=== PATIENT | female | born 1945 | race Caucasian/White ===

== ENCOUNTER → 2019-11-11 14:49 | Outpatient (BNVA) | payer MEDICARE, OTHER, SELFPAY | PROVIDERS: Family Provider Family Medicine; PCP Family Medicine; Visit Provider Internal Medicine Rheumatology | DX: M05.79 Rheumatoid arthritis with rheumatoid factor of multiple sites without organ or systems involvement (principal); Z79.899 Other long term (current) drug therapy; M81.0 Age-related osteoporosis without current pathological fracture; H57.89 Other specified disorders of eye and adnexa | CPT/HCPCS: 99214 ==

== ENCOUNTER → 2020-02-10 10:03 | Outpatient (BNVA) | payer MEDICARE, OTHER, SELFPAY | PROVIDERS: Family Provider Family Medicine; PCP Family Medicine; Visit Provider Internal Medicine Rheumatology | DX: Z79.899 Other long term (current) drug therapy (principal) | CPT/HCPCS: 36415; 80076; 82306; 82565; 85025; 85651; 86140 ==

== ENCOUNTER → 2020-02-17 08:58 | Outpatient (BNVA) | payer MEDICARE, OTHER, SELFPAY | PROVIDERS: Family Provider Family Medicine; PCP Family Medicine; Visit Provider Internal Medicine Rheumatology | DX: M05.79 Rheumatoid arthritis with rheumatoid factor of multiple sites without organ or systems involvement (principal); Z79.899 Other long term (current) drug therapy; M81.0 Age-related osteoporosis without current pathological fracture; N30.20 Other chronic cystitis without hematuria; N39.498 Other specified urinary incontinence | CPT/HCPCS: 99214 ==

== ENCOUNTER → 2020-02-25 13:46 | Outpatient (BNVA) | payer MEDICARE, OTHER, SELFPAY | PROVIDERS: Family Provider Family Medicine; PCP Family Medicine; Visit Provider Nurse Practitioner Family | DX: N30.20 Other chronic cystitis without hematuria (principal); N39.498 Other specified urinary incontinence | CPT/HCPCS: 81001 ==

== ENCOUNTER → 2020-05-04 08:46 | Outpatient (BNVA) | payer MEDICARE, OTHER, SELFPAY | PROVIDERS: Family Provider Family Medicine; PCP Family Medicine; Referring Provider Dermatology; Visit Provider Dermatology | DX: L81.4 Other melanin hyperpigmentation (principal); D36.10 Benign neoplasm of peripheral nerves and autonomic nervous system, unspecified; L82.1 Other seborrheic keratosis; D23.30 Other benign neoplasm of skin of unspecified part of face | CPT/HCPCS: 99203 ==

== ENCOUNTER → 2020-05-30 13:07 | Outpatient (BNVA) | payer MEDICARE, OTHER, SELFPAY | PROVIDERS: Family Provider Family Medicine; PCP Family Medicine; Visit Provider Nurse Practitioner Family | DX: N30.20 Other chronic cystitis without hematuria (principal) | CPT/HCPCS: 81001 ==

== ENCOUNTER → 2020-06-06 09:10 | Outpatient (BNVA) | payer MEDICARE, OTHER, SELFPAY | PROVIDERS: Family Provider Family Medicine; PCP Family Medicine; Visit Provider Internal Medicine Rheumatology | DX: M05.79 Rheumatoid arthritis with rheumatoid factor of multiple sites without organ or systems involvement (principal); Z79.899 Other long term (current) drug therapy | CPT/HCPCS: 36415; 80076; 82565; 85025; 85651; 86140 ==

== ENCOUNTER → 2020-06-22 08:52 | Outpatient (BNVA) | payer MEDICARE, OTHER, SELFPAY | PROVIDERS: Family Provider Family Medicine; PCP Family Medicine; Visit Provider Internal Medicine Rheumatology | DX: M05.79 Rheumatoid arthritis with rheumatoid factor of multiple sites without organ or systems involvement (principal); Z79.899 Other long term (current) drug therapy; M81.0 Age-related osteoporosis without current pathological fracture | CPT/HCPCS: 99214 ==

== ENCOUNTER 2020-07-01 14:55 | Outpatient (CLI) | payer MEDICARE, OTHER, SELFPAY ==
--- NOTE | 2020-07-01 15:15 | XR_ITS ---
WS: [id number] Bone mineral density performed on a [email or web address] IDXA, 07/01/2020 Clinical data: osteoporosis DEXA scan, 07/13/2013. Findings: The first 4 lumbar vertebral bodies demonstrated the bone mineral density of 0.886 g/cm2 for a young adult T score of -2.5. Measurement of the left hip reveals a bone mineral density of 0.782 g/cm2 with a young adult T score of -1.8. Measurement of the right hip reveals the bone mineral density of 0.773 g/cm2 for young adult T score of -1.9. XR/XR DEXA axial skeleton* [id number] Impression: 1. Osteoporosis of the lumbar spine with a slight improvement in the bone cloth examiner hand al density. 2. Osteopenia of the left hip with a slight decrease in the bone mineral densit y compared to the previous study. 3. Osteopenia of the right hip with a moderate loss of bone mineral density com pared to the previous study.
== END 2020-07-01 14:56 | disposition home or self-care (01) ==
LOC: RADWPI 15:03
PROVIDERS: Family Provider Family Medicine; PCP Family Medicine; Visit Provider Internal Medicine Rheumatology
DX: M81.0 Age-related osteoporosis without current pathological fracture (principal); M85.88 Other specified disorders of bone density and structure, other site
CPT/HCPCS: 77080

== ENCOUNTER → 2020-08-29 13:04 | Outpatient (BNVA) | payer MEDICARE, OTHER, SELFPAY | PROVIDERS: Family Provider Family Medicine; PCP Family Medicine; Visit Provider Nurse Practitioner Family | DX: N30.20 Other chronic cystitis without hematuria (principal) | CPT/HCPCS: 81003 ==

== ENCOUNTER → 2020-10-19 09:49 | Outpatient (BNVA) | payer MEDICARE, OTHER, SELFPAY | PROVIDERS: Family Provider Family Medicine; PCP Family Medicine; Visit Provider Internal Medicine Rheumatology | DX: M05.79 Rheumatoid arthritis with rheumatoid factor of multiple sites without organ or systems involvement (principal); Z79.899 Other long term (current) drug therapy; M81.0 Age-related osteoporosis without current pathological fracture | CPT/HCPCS: 99214 ==

== ENCOUNTER → 2020-11-28 13:16 | Outpatient (BNVA) | payer MEDICARE, OTHER, SELFPAY | PROVIDERS: Family Provider Family Medicine; PCP Family Medicine; Visit Provider Nurse Practitioner Family | DX: N30.20 Other chronic cystitis without hematuria (principal) | CPT/HCPCS: 81003 ==

== ENCOUNTER → 2021-02-14 09:49 | Outpatient (BNVA) | payer MEDICARE, OTHER, SELFPAY | PROVIDERS: Family Provider Family Medicine; PCP Family Medicine; Visit Provider Internal Medicine Rheumatology | DX: Z79.899 Other long term (current) drug therapy (principal); M05.79 Rheumatoid arthritis with rheumatoid factor of multiple sites without organ or systems involvement; M19.90 Unspecified osteoarthritis, unspecified site | CPT/HCPCS: 36415; 80076; 82565; 85025; 86140 ==

== ENCOUNTER → 2021-02-23 09:55 | Outpatient (BNVA) | payer MEDICARE, OTHER, SELFPAY | PROVIDERS: Family Provider Family Medicine; PCP Family Medicine; Visit Provider Internal Medicine Rheumatology | DX: M05.79 Rheumatoid arthritis with rheumatoid factor of multiple sites without organ or systems involvement (principal); Z79.899 Other long term (current) drug therapy; M81.0 Age-related osteoporosis without current pathological fracture; R25.2 Cramp and spasm; Z86.16 Personal history of COVID-19 | CPT/HCPCS: 99214 ==

== ENCOUNTER → 2021-04-04 13:42 | Outpatient (BNVA) | payer MEDICARE, OTHER, SELFPAY | PROVIDERS: Family Provider Family Medicine; PCP Family Medicine; Visit Provider Urology | DX: N30.20 Other chronic cystitis without hematuria (principal) | CPT/HCPCS: 81003; 87077; 87086; 87184 ==

== ENCOUNTER → 2021-05-16 13:11 | Outpatient (BNVA) | payer MEDICARE, OTHER, SELFPAY | PROVIDERS: Family Provider Family Medicine; PCP Family Medicine; Visit Provider Urology | DX: N30.20 Other chronic cystitis without hematuria (principal); N39.498 Other specified urinary incontinence; N39.41 Urge incontinence | CPT/HCPCS: 81003 ==

== ENCOUNTER → 2021-06-15 13:58 | Outpatient (BNVA) | payer MEDICARE, OTHER, SELFPAY | PROVIDERS: Family Provider Family Medicine; PCP Family Medicine; Visit Provider Internal Medicine Rheumatology | DX: M05.79 Rheumatoid arthritis with rheumatoid factor of multiple sites without organ or systems involvement (principal); R25.2 Cramp and spasm; Z79.899 Other long term (current) drug therapy | CPT/HCPCS: 36415; 80076; 82310; 82565; 85025; 86140 ==

== ENCOUNTER → 2021-07-13 08:34 | Outpatient (BNVA) | payer MEDICARE, OTHER, SELFPAY | PROVIDERS: Family Provider Family Medicine; PCP Family Medicine; Visit Provider Nurse Practitioner Family | DX: N30.20 Other chronic cystitis without hematuria (principal) | CPT/HCPCS: 81003 ==

== ENCOUNTER → 2021-09-06 14:24 | Outpatient (BNVA) | payer MEDICARE, OTHER, SELFPAY | PROVIDERS: Family Provider Family Medicine; PCP Family Medicine; Visit Provider Internal Medicine Rheumatology | DX: M05.79 Rheumatoid arthritis with rheumatoid factor of multiple sites without organ or systems involvement (principal); Z79.899 Other long term (current) drug therapy; M81.0 Age-related osteoporosis without current pathological fracture; Z86.16 Personal history of COVID-19; Z71.89 Other specified counseling | CPT/HCPCS: 80076; 82565; 85025; 86140; 99214 ==

== ENCOUNTER 2021-09-06 15:59 | Outpatient (CLI) | payer MEDICARE, OTHER, SELFPAY ==
[2021-09-06 16:24] LABS: Basophils % 0.5 %; Eosinophils # 0.2 10^3/uL (0.0-0.8); Eosinophils % 2.3 %; Hematocrit 38.4 % (37.0-47.0); Hemoglobin 12.5 g/dL (11.5-15.3); Lymphocytes # 1.4 10^3/uL (0.8-4.8); Lymphocytes % 20.7 %; Mean Corpuscular HGB Conc 32.6 g/dL (30.0-36.0); Mean Corpuscular Hemoglobin 33.7 pg (28.0-34.0); Mean Corpuscular Volume 103.5 fl (81-99); Mean Platelet Volume 9.3 fL (7.4-10.4); Monocytes # 0.6 10^3/uL (0.2-0.9); Monocytes % 8.3 %; Neutrophils # 4.45 10^3/uL (1.8-7.7); Neutrophils % 67.3 %; Nucleated Red Blood Cells % 0 %; Platelet Count 189 10^3/cmm (130-400); Red Blood Count 3.71 10^6/uL (4.1-5.3); Red Cell Distribution Width 14.4 % (12.1-15.1); White Blood Count 6.6 10^3/uL (4.0-10.0)
[2021-09-06 16:43] LABS: Alanine Aminotransferase 44 U/L (0-33); Albumin Level 3.8 g/dL (3.5-5.2); Alkaline Phosphatase 70 IU/L (35-105); Aspartate Amino Transferase 40 U/L (0-32); C Reactive Protein 0.5 mg/L (0.0-4.9); Globulin 2.6 g/dL (1.3-4.6); Total Bilirubin 0.3 mg/dL (0.15-1.2); Total Protein 6.4 g/dL (6.6-8.7)
== END 2021-09-06 16:00 | disposition home or self-care (01) ==
LOC: LAB 16:06
PROVIDERS: PCP Family Medicine; Visit Provider Internal Medicine Rheumatology
DX: M05.79 Rheumatoid arthritis with rheumatoid factor of multiple sites without organ or systems involvement (principal); Z79.899 Other long term (current) drug therapy
CPT/HCPCS: 80076; 82565; 85025; 86140

== ENCOUNTER → 2021-12-19 09:26 | Outpatient (BNVA) | payer MEDICARE, OTHER, SELFPAY | PROVIDERS: PCP Family Medicine; Visit Provider Nurse Practitioner Family | DX: N30.20 Other chronic cystitis without hematuria (principal); N39.41 Urge incontinence | CPT/HCPCS: 81003; 87077; 87086; 87184 ==

== ENCOUNTER → 2022-01-03 13:35 | Outpatient (BNVA) | payer MEDICARE, OTHER, SELFPAY | PROVIDERS: PCP Family Medicine; Visit Provider Internal Medicine Rheumatology | DX: M05.79 Rheumatoid arthritis with rheumatoid factor of multiple sites without organ or systems involvement (principal); Z79.899 Other long term (current) drug therapy; M81.0 Age-related osteoporosis without current pathological fracture; Z86.16 Personal history of COVID-19; Z71.89 Other specified counseling | CPT/HCPCS: 36415; 80076; 82310; 82565; 83735; 84132; 85025; 86140; 99214 ==

== ENCOUNTER 2022-02-22 05:47 | Emergency (ER) | payer MEDICARE, OTHER, SELFPAY ==
[2022-02-22 05:49] VITALS: BP 137/77; PULSE 82; RESP 18; TEMP 36.3; O2SAT 98
[2022-02-22 06:13] VITALS: BP 137/77; PULSE 82; RESP 18; TEMP 36.3; O2SAT 98
--- NOTE | 2022-02-22 06:17 | CTR_ITS ---
PROCEDURE INFORMATION: Exam: CT Cervical Spine Without Contrast Exam date and time: 02/22/2022 7:09 AM Age: 76 years old Clinical indication: Injury or trauma; Concussion/head injury; Patient HX: Fall in shower TECHNIQUE: Imaging protocol: Computed tomography images of the cervical spine without contrast. Radiation optimization: All CT scans at this facility use at least one of these dose optimization techniques: automated exposure control; mA and/or kV adjustment per patient size (includes targeted exams where dose is matched to clinical indication); or iterative reconstruction. COMPARISON: CT head wo con* [id number] 02/22/2022 7:07 AM RADIATION DOSE METRICS: Total DLP (mGy-cm): 292.99 FINDINGS: Bones/joints: No acute fracture. Normal alignment. Discs/Spinal canal/Neural foramina: Chronic degenerative changes are present with mild disc space narrowing small osteophytes on the vertebral bodies. There is degenerative narrowing and sclerosis in the cervical facet joints. No severe spinal canal stenosis. No significant neural foraminal narrowing. Lungs: Lung apices are normal. Soft tissues: Unremarkable. CT/CT cervical spin wo con* [id number] IMPRESSION: No acute findings.
--- NOTE | 2022-02-22 06:18 | CTR_ITS ---
PROCEDURE INFORMATION: Exam: CT Head Without Contrast Exam date and time: 02/22/2022 7:07 AM Age: 76 years old Clinical indication: Injury or trauma; Concussion/head injury; Without loss of consciousness; Patient HX: Fall in shower hit chin TECHNIQUE: Imaging protocol: Computed tomography of the head without contrast. Radiation optimization: All CT scans at this facility use at least one of these dose optimization techniques: automated exposure control; mA and/or kV adjustment per patient size (includes targeted exams where dose is matched to clinical indication); or iterative reconstruction. COMPARISON: No relevant prior studies available. RADIATION DOSE METRICS: Total DLP (mGy-cm): 777.45 FINDINGS: Brain: No intracranial hemorrhage, edema or other acute abnormalities are seen in the brain. There is moderate generalized chronic atrophy with chronic white matter ischemic changes. There is no mass effect or midline shift. Cerebral ventricles: No ventriculomegaly. Paranasal sinuses: There is mild coastal thickening in the ethmoid sinuses. Mastoid air cells: Visualized mastoid air cells are well aerated. Bones/joints: Unremarkable. No acute fracture. Soft tissues: Unremarkable. CT/CT head wo con* [id number] IMPRESSION: No acute intracranial abnormality.
--- NOTE | 2022-02-22 06:20 | ED_ITS ---
HPI - General Adult General: Chief complaint: General Medical Stated complaint: fall Time Seen by Provider: 02/22/22 05:52 Source: patient Mode of arrival: EMS Limitations: no limitations History of Present Illness: 76-year-old female who presents to the emergency room via EMS after a fall at home in the shower. Patient states she generally felt like she had mild upper respiratory infection with sinus congestion and drainage for the last few days no diarrhea no fever no real shortness of breath. She got up this morning to take a shower got lightheaded dizzy and fell caught her chin on a hard surface and has a small laceration under her chin she denies loss of consciousness she denies neck pain. She denies any other injuries at this time. No chest pain no shortness of breath. Is able to move all extremities. She does have little tenderness with palpation of the sternum no bruising no laceration does not recall hitting anything directly. Onset (ago): minute(s) Location: face Relieving factors: none Exacerbating factors: none Associated symptoms: Deny chest pain, confusion, cough, diaphoresis, decreased appetite, dyspnea, fevers/chills, headache(s), malaise, nausea, rash, palpitations, seizures, short of breath, syncope, vomiting or weakness Treatments prior to arrival: none Review of Systems Const: Denies: fever(s), chills, malaise or diaphoresis ENMT: Denies: throat pain, ear or mastoid pain, nasal discharge or nasal congestion Card: Denies: chest pain, palpitations or syncope Resp: Denies: dyspnea GI: Denies: abdominal pain, nausea, vomiting or hematemesis : Denies: flank pain, difficulty voiding, dysuria, urinary frequency or urinary urgency Musc: Denies: neck pain or back pain Skin/Breast: Denies: rash Neuro: Denies: headache(s) or confusion PFS ED PFSH: Medical History Chronic cystitis High risk medication use History of cystocele Immunization counseling Osteoporosis Red eye Rheumatoid arthritis with rheumatoid factor Surgical History History of vaginal surgery History of varicose vein ligation and stripping Family History Mother , at age 96-heart disease Stroke Father , in his 70's No problems noted. Other Arthritis CAD (coronary artery disease) Hypertension Denies family history of Diabetes Cancer Social History Smoking and tobacco status: never smoked Alcohol intake: never Marital status: Current occupational status: retired History of recent travel: Yes ([place]) Current gender identity: Male Physical Exam 2 Const: COMMON NORMALS: no acute distress GENERAL APPEARANCE: cooperative and comfortable ORIENTATION/CONSCIOUSNESS: Yes awake, Yes oriented to person, Yes oriented to place and Yes oriented to time HENMT: COMMON NORMALS: normocephalic, hearing grossly normal bilaterally, external ears normal, EAC's normal and TM's normal bilaterally HEAD & SCALP: normocephalic EXTERNAL EAR: Yes external ears normal EXTERNAL AUDITORY CANAL: EAC's normal TYMPANIC MEMBRANE: TM's normal bilaterally OTHER: 4 cm laceration under the chin at the midline. Eye: COMMON NORMALS: Equal, round and reactive pupils present, EOMs intact bilaterally, conjunctivae normal and no scleral icterus CONJUNCTIVA: Yes conjunctivae normal PUPIL: Yes Equal, round and reactive pupils present Neck/C-Spine: COMMON NORMALS: full ROM, no lymphadenopathy, supple and no JVD Resp: COMMON NORMALS: normal respiratory effort, No retractions, No use of accessory muscles and clear to auscultation bilaterally AUSCULTATION: clear to auscultation bilaterally Cardio: COMMON NORMALS: no JVD, regular rate, regular rhythm and No murmurs present (Cardio) RATE: regular rate RHYTHM: regular rhythm GI: COMMON NORMALS: Soft to palpation and No hepatosplenomegaly present AUSCULTATION: Yes normoactive bowel sounds PALPATION: Yes Soft to palpation, No Tenderness to palpation present (GI), No Guarding due to palpation present (GI) and Yes No hepatosplenomegaly present Extremity: COMMON NORMALS: normal to inspection, capillary refill normal, no clubbing, cyanosis or edema, no calf tenderness and no pedal edema Neuro: SENSORIUM/ORIENTATION: Yes oriented to person, Yes oriented to place and Yes oriented to time Skin: COMMON NORMALS: no rashes or lesions noted GENERAL SKIN EXAM: no rashes or lesions noted Course Vital Signs: Vital signs: Vital Signs Temperature 97.4 F L 02/22/22 06:13 Pulse Rate 72 02/22/22 08:12 Respiratory Rate 17 02/22/22 08:12 Blood Pressure 137/74 02/22/22 08:12 Pulse Oximetry 97 02/22/22 08:12 [facility] - General Adult Medical Decision Making Labs and imaging reviewed with the patient. Laceration was repaired see above. Patient discharged home topical antibiotic ointment and follow-up as needed. Reviewing the chart and noted she had not received her tetanus shot will call the patient back have her return to get tetanus. Medical Records I reviewed the patient's medical records. Lab Data I reviewed the patient's lab results. : 02/22/22 06:03 02/22/22 06:03 Radiology Impressions Cervical Spine CT 02/22/22 06:17 IMPRESSION: No acute findings. Head CT 02/22/22 06:18 IMPRESSION: No acute intracranial abnormality. Laboratory Results WBC 7.0 10^3/uL (4.0-10.0) 02/22/22 06:03 RBC 3.95 10^6/uL (4.1-5.3) L 02/22/22 06:03 Hgb 13.5 g/dL (11.5-15.3) 02/22/22 06:03 Hct 39.9 % (37.0-47.0) 02/22/22 06:03 MCV 101.0 fl (81-99) H 02/22/22 06:03 MCH 34.2 pg (28.0-34.0) H 02/22/22 06:03 MCHC 33.8 g/dL (30.0-36.0) 02/22/22 06:03 RDW 14.3 % (12.1-15.1) 02/22/22 06:03 Plt Count 165 10^3/cmm (130-400) 02/22/22 06:03 MPV 10.0 fL (7.4-10.4) 02/22/22 06:03 Neut % (Auto) 74.6 % 02/22/22 06:03 Lymph % (Auto) 13.9 % 02/22/22 06:03 [place] % (Auto) 8.9 % 02/22/22 06:03 Eos % (Auto) 0.9 % 02/22/22 06:03 Baso % (Auto) 0.4 % 02/22/22 06:03 Neut # (Auto) 5.21 10^3/uL (1.8-7.7) 02/22/22 06:03 Lymph # (Auto) 1.0 10^3/uL (0.8-4.8) 02/22/22 06:03 [place] # (Auto) 0.6 10^3/uL (0.2-0.9) 02/22/22 06:03 Eos # (Auto) 0.1 10^3/uL (0.0-0.8) 02/22/22 06:03 Baso # (Auto) 0.0 10^3/uL (0.0-0.1) 02/22/22 06:03 Nucleated RBC % (auto) 0 % 02/22/22 06:03 Nucleated RBCs # 0.0 /100WBC 02/22/22 06:03 Sodium 138 mmol/L (136-145) 02/22/22 06:03 Potassium 4.0 mmol/L (3.5-5.1) 02/22/22 06:03 Chloride 102 mmol/L (98-107) 02/22/22 06:03 Carbon Dioxide 26 mmol/L (22-29) 02/22/22 06:03 Anion Gap 14.0 (5-19) 02/22/22 06:03 BUN 8 mg/dL (8-23) 02/22/22 06:03 Creatinine 0.7 mg/dL (0.5-0.9) 02/22/22 06:03 GFR Calculation Not Reportable 02/22/22 06:03 Glucose 125 mg/dL (65-115) H 02/22/22 06:03 Calculated Osmolality 286 mOsm/kg (285-295) 02/22/22 06:03 Calcium 8.6 mg/dL (8.5-10.5) 02/22/22 06:03 Discharge Plan Discharge Patient Disposition: Home Clinical Impression: Fall, Facial laceration Condition: Stable Prescriptions: No Action alendronate [Fosamax] 70 mg tablet 70 mg PO .one tab once a week Qty: 12 1RF folic acid 1 mg tablet 1 mg PO DAILY Qty: 90 3RF methotrexate sodium 2.5 mg tablet See Rx Instructions PO .weekly Qty: 40 4RF Rx Instructions: take 4 tabs in am and 4 tabs in pm on same day once a week prednisone 10 mg tablet See Rx Instructions PO .COMPLEX PRN (Reason: joint pain) Qty: 30 3RF Rx Instructions: take 1 tab daily for 4-5 days prn flare PO PRN; ascorbic acid (vitamin C) 125 mg tablet,chewable 125 mg PO DAILY 0RF methenamine hippurate 1 gram tablet 1 g PO BID Qty: 60 12RF Rx Instructions: Take 1000 mg of vitamin C with each dose of methenamine VIACTIVE PO 0RF doxycycline hyclate 100 mg tablet 100 mg PO BID Qty: 28 3RF Discharge Orders: Discharge ED (Routine); Ordered 02/22/22 Ordered By: Jose Jimenez Referrals: Galilea De La Rosa MD [Primary Care Provider] - Discharge Diet: Usual diet Discharge Activity: Resume usual activity Patient Instructions: Opioid Safety Activity Restrictions/Additional Instructions: [id number]-[id number]-[id number] topical antibiotic ointment to laceration on the chin 1-2 times daily Sutures to be removed in 7 days. Coding Level of Care Code ED [facility] Exam Comprehensive
[2022-02-22 06:32] LABS: Basophils % 0.4 %; Eosinophils # 0.1 10^3/uL (0.0-0.8); Eosinophils % 0.9 %; Hematocrit 39.9 % (37.0-47.0); Hemoglobin 13.5 g/dL (11.5-15.3); Lymphocytes % 13.9 %; Mean Corpuscular HGB Conc 33.8 g/dL (30.0-36.0); Mean Corpuscular Hemoglobin 34.2 pg (28.0-34.0); Monocytes # 0.6 10^3/uL (0.2-0.9); Monocytes % 8.9 %; Neutrophils # 5.21 10^3/uL (1.8-7.7); Neutrophils % 74.6 %; Nucleated Red Blood Cells % 0 %; Platelet Count 165 10^3/cmm (130-400); Red Blood Count 3.95 10^6/uL (4.1-5.3); Red Cell Distribution Width 14.3 % (12.1-15.1)
[2022-02-22 06:52] LABS: Blood Urea Nitrogen 8 mg/dL (8-23); Calcium 8.6 mg/dL (8.5-10.5); Carbon Dioxide 26 mmol/L (22-29); Chloride 102 mmol/L (98-107); Glucose 125 mg/dL (65-115); Osmolality Calculated 286 mOsm/kg (285-295); Sodium 138 mmol/L (136-145)
--- NOTE | 2022-02-22 07:30 | PC.NURSE ---
Patient resting in bed with eyes closed, breathing even and non-labored, no distress noted. Patient vitals stable.
[2022-02-22 08:12] VITALS: BP 137/74; PULSE 72; RESP 17; O2SAT 97
[2022-02-22] MEDS: tetanus-diphtheria tox (adult) 0.5 mL SDV IM (09:15)
[2022-02-22 09:44] VITALS: BP 145/83; PULSE 71; RESP 18; O2SAT 99
== END 2022-02-22 09:46 | disposition home or self-care (01) ==
PROVIDERS: Emergency Provider Family Medicine; PCP Family Medicine
DX: S01.81XA Laceration without foreign body of other part of head, initial encounter (principal); W18.2XXA Fall in (into) shower or empty bathtub, initial encounter; Y92.002 Bathroom of unspecified non-institutional (private) residence as the place of occurrence of the external cause; R42 Dizziness and giddiness; R09.81 Nasal congestion; Z23 Encounter for immunization
CPT/HCPCS: 12013; 70450; 72125; 80048; 85025; 90714; 96372; 99283

== ENCOUNTER → 2022-04-25 13:09 | Outpatient (BNVA) | payer MEDICARE, OTHER, SELFPAY | PROVIDERS: PCP Family Medicine; Visit Provider Internal Medicine Rheumatology | DX: M05.79 Rheumatoid arthritis with rheumatoid factor of multiple sites without organ or systems involvement (principal); M81.0 Age-related osteoporosis without current pathological fracture; Z79.899 Other long term (current) drug therapy; J34.0 Abscess, furuncle and carbuncle of nose; Z71.89 Other specified counseling; Z86.16 Personal history of COVID-19 | CPT/HCPCS: 36415; 80076; 82565; 85025; 86036; 86140; 99214 ==

== ENCOUNTER 2022-05-01 06:00 | Outpatient (RCR) | payer MEDICARE, OTHER, SELFPAY | END 2022-05-16 23:59 | disposition home or self-care (01) | LOC: SPT 06:00 | PROVIDERS: PCP Family Medicine; Referring Provider Family Medicine; Visit Provider Family Medicine | DX: R26.81 Unsteadiness on feet (principal); J34.89 Other specified disorders of nose and nasal sinuses; Z48.89 Encounter for other specified surgical aftercare | CPT/HCPCS: 81003; 87077; 87086; 87186; 97110; 97112; 97161; 99204; 99213 ==

== ENCOUNTER → 2022-05-01 08:19 | Outpatient (BNVA) | payer MEDICARE, OTHER, SELFPAY | PROVIDERS: PCP Family Medicine; Visit Provider Urology | DX: N30.20 Other chronic cystitis without hematuria (principal); Z87.440 Personal history of urinary (tract) infections; N39.46 Mixed incontinence | CPT/HCPCS: 81003; 87077; 87086; 87186; 99204; 99213 ==

== ENCOUNTER 2022-05-10 06:16 | Day surgery (SDC) | payer MEDICARE, OTHER, SELFPAY ==
[2022-05-09 13:17] VITALS: BMI 23.3
[2022-05-10] VITALS (14 sets, daily range): BP systolic 148–209; BP diastolic 82–143; PULSE 68–96; RESP 12–19; TEMP 36.2–36.6; O2SAT 95–100
[2022-05-10] MEDS: sodium chloride 0.9% 1,000 ML 30 ML IV (07:10)
--- NOTE | 2022-05-10 07:32 | W.PM.OPSUD ---
Surgery/Procedure H&P Update DATE OF PROCEDURE: May 10, 2022 DATE H&P PERFORMED: 05/01/22 H&P UPDATE INFORMATION: I have reviewed H&P completed within last 30 days, I have examined patient prior to procedure and No changes to prior documentation CHANGES TO PREVIOUS DOCUMENTATION: No changes PREOP DIAGNOSIS: Right anterior septal papilloma PRIMARY INDICATION FOR PROCEDURE: Right anterior nasal septal mass consistent with a papilloma PLANNED PROCEDURE: Operation Date: 05/10/22 08:00 Proposed Procedures p Excision Nasal Mass/Lesion(Not Applicable) - Dedrick Rueda MD
[2022-05-10] MEDS: ceFAZolin 2,000 MG in sodium chloride 0.9% (plus) 50 ML 100 MG IV (07:49)
[2022-05-10] MEDS: oxymetazoline 0.05% Nasal Spray 15 mL 1 SPRAY NOSTRIL-R (08:15)
--- NOTE | 2022-05-10 08:20 | SUR.OPER ---
6.8ML 2% LIDOCAINE WITH EPI CARPULES WERE USED IN THE RIGHT NOSTRIL.
--- NOTE | 2022-05-10 08:24 | P.ANESASSM_ITS ---
Pre-Anesthetic Assessment Height/Weight: Height 1.68 m Weight 65.771 kg Temp Pulse Resp BP Pulse Ox O2 Del Method 97.9 F 71 18 148/94 100 05/10/22 06:52 05/10/22 06:52 05/10/22 06:52 05/10/22 06:52 05/10/22 06:52 05/10/22 06:52 Preop Diagnosis: Right anterior septal papilloma Operation Date: 05/10/22 08:00 Proposed Procedures p Excision Nasal Mass/Lesion(Not Applicable) - Dedrick Rueda MD Familial anesthetic complications: None Was Beta Carline taken within 24 hours: N/A Was Clonidine taken within 24 hours: N/A Last intake: Intake Last Liquid Date 05/09/22 Last Liquid Time 20:30 Last Solid Date 05/09/22 Last Solid Time 17:00 Social No alcohol and No tobacco Exam alert, oriented x 3, clear to auscultation bilaterally and regular rate & rhythm Airway Submandibular: within normal limits Cervical ROM: within normal limits Mallampati: Class II Dentition: full Cystitis Metabolic Chronic [place] [facility] Rheumatoid Arthritis Anesthetic Plan ASA status: 2 Anesthesia: General Medications/Allergies Home Medications Medication Instructions Recorded Confirmed Last Taken Type prednisone 10 mg tablet See Rx Instructions PO .COMPLEX 06/22/20 05/09/22 Unknown Rx PRN joint pain #30 tabs ascorbic acid (vitamin C) 125 mg 125 mg PO DAILY 07/13/21 05/10/22 05/09/22 History chewable tablet VIACTIVE 1 tab PO DAILY 12/19/21 05/09/22 Unknown History folic acid 1 mg tablet 1 mg PO DAILY #90 tabs 01/03/22 05/10/22 05/09/22 Rx alendronate 70 mg tablet (Fosamax) 70 mg PO .one tab once a week #12 04/25/22 05/09/22 05/08/22 Rx tabs loratadine 10 mg tablet (Claritin) 10 mg PO DAILY PRN allergy 04/25/22 05/10/22 05/09/22 Rx symptoms #30 tabs methotrexate sodium 2.5 mg tablet See Rx Instructions PO .weekly #40 04/25/22 05/10/22 Unknown Rx tabs methenamine hippurate 1 gram tablet 1 g PO BID #60 tabs 08/05/10/22 05/09/22 Rx Allergies Allergy/AdvReac Type Severity Reaction Status Date / Time No Known Allergies Allergy Verified 05/01/22 15:53 Current Medications Generic Name Dose Route Start Last Admin Trade Name Marta PRN Reason Stop Dose Admin Sodium Chloride 1,000 mls @ 30 mls/hr 05/10/22 06:30 05/10/22 07:10 Sodium Chloride 0.9% IV 05/11/22 06:29 30 mls/hr .Q24H RAFAEL Administration PFSH Anesthesia Medical History Chronic cystitis COVID-19 pt was off quarantine mid Sep 2020 High risk medication use History of cystocele Immunization counseling Nasal ulcer Osteoporosis Red eye Rheumatoid arthritis with rheumatoid factor Surgical History History of vaginal surgery History of varicose vein ligation and stripping Family History Mother , at age 96-heart disease Stroke Father , in his 70's No problems noted. Other Arthritis CAD (coronary artery disease) Hypertension Denies family history of Diabetes Cancer Social History Smoking and tobacco status: never smoked Alcohol intake: never Marital status: Current occupational status: retired History of recent travel: Yes ([place]) Current gender identity: Male Data Anesthesia Cardiac Studies: No Data to Display
--- NOTE | 2022-05-10 09:06 | P.OP_ITS ---
Operative Report Date of procedure: May 10, 2022 Pre-op diagnosis: Preop Diagnosis Right anterior septal papilloma Post-op diagnosis: Same Post-op findings: The suspect lesion on the right anterior septum still had some papilliform qualities but had been traumatized and picked and any scabbing may have fallen off recently and left a raw area. After the resection of the lesion it is left open with exposed cartilage. Procedure done: Excision of right anterior nasal septal lesion without repair Implants: Telfa packing with Neosporin ointment and right nasal cavity Specimens removed/disposition: Right anterior nasal septal lesion Pathology: Right anterior nasal septal lesion. Frozen section performed and showed papilloma with atypia but no kevin malignancy evident. Surgeon: Dedrick Rueda MD Anesthesia: General and Local Estimated blood loss: 15 mL Complications: No complications encountered Findings: Findings prior to surgery were a papillomatous somewhat ovoid lesion in the right anterior septum. Had typical papilliform pattern with some irregularities. Measured approximately 1 cm x 8 mm. At the time of surgery it had deteriorated somewhat and the surface had been eroded. Raw tissue was evident. No active bleeding. Brief History: 76-year-old female patient with a right anterior nasal septal lesion which she has had for many months. She picks it and it causes bleeding. There is scabbing that forms. Then she picks and blows again and it bleeds again. Therefore after examination that revealed a papillomatous lesion I felt it was necessary to excise this lesion for definitive pathology and to read the source of the constant bleeding. Patient being brought to the operating room for that procedure. Risks and complications discussed included bleeding infection numbn ess scarring swelling bruising recurrence need for additional treatment and more serious risks associated with anesthesia. With these things understood informed consent was granted and witnessed. Procedure: Description of procedure: The patient was placed on the operating table in the supine position. Adequate general endotracheal tube anesthesia was obtained. The patient was repositioned into a semirecumbent position. Her right nasal cavity was evaluated and found to be irregular in its pattern of lesion on the right anterior septum. It looked much more raw as if it had been recently traumatized and picked and bled. No abnormalities were found in the left nasal cavity. The nose was packed with 6 cottonoids soaked in 12-hour Afrin. Hair nasal hairs were trimmed with scissors. Afrin packs were removed. The right anterior septum was infiltrated with local. A total of 6.8 mL of 2% Xylocaine with 1-100,000 epinephrine was utilized. The Afrin packs were reapplied to the nose. A timeout was accomplished identifying the patient date of plan procedure allergies fire risk and medications given. With all in agreement the procedure continued. The patient was prepped and draped in usual fashion. The right nasal cottonoids were removed. The excision pattern was planned and created with a 15 blade and ovoid shape approximately 1.5 cm anterior to posterior and 1 cm superior to inferior. Lesion seemed to be thickening the usual mucous membrane. It was irregular and ratty. Therefore I took it down to and included a layer of the perichondrium off the quadrangular cartilage. It was in this layer that I resected the lesion. This was forwarded to pathology. Frozen section was done and returned as papillomata's qualities with erosion and atypia but no malignancy identified. While that was pending the Afrin packs were reapplied to the nose. At this point all Afrin packs were removed from both sides of the nose. The nose was suctioned clean. There was no sign of active bleeding. The nose on the right side was packed with Telfa coated with Neosporin ointment. The mouth and oropharynx were suctioned. Drapes were removed. Patient was returned to anesthesia for wake-up and extubation. Patient tolerated the procedure well had an estimated blood loss of 15 mL or less and arrived in recovery in stable condition.
[2022-05-10] MEDS: metoprolol tartrate 1 mg/1 mL SDV 5 mL 5 MG IVP (09:49)
[2022-05-10] MEDS: hyDRALAzine 20 mg/mL INJ 1 mL 10 MG IVP (10:12)
[2022-05-10] MEDS: acetaminophen-codeine 300-30mg Tablet 1 TAB (11:18)
--- NOTE | 2022-05-10 13:36 | ANE.PACU2 ---
Inpatient post-anesthesia follow up: Airway intact: Yes Vital signs: Temperature 97.3 F Pulse Rate 71 Respiratory Rate 18 Blood Pressure 172/88 Pulse Oximetry 100 Oxygen Delivery Me thod Room Air Oxygen Flow Rate Fraction of Inspir ed Oxygen Hydration adequate: Yes Nausea and vomiting: No Pain level: 3 Mental status: Baseline
== END 2022-05-10 11:30 | disposition home or self-care (01) ==
PROVIDERS: PCP Family Medicine; Visit Provider Otolaryngology
PROC: 0HB1XZZ Excision of Face Skin, External Approach (ICD-10-PCS; CPT 30117; principal; 2022-05-10 08:00)
DX: D14.0 Benign neoplasm of middle ear, nasal cavity and accessory sinuses (principal); I10 Essential (primary) hypertension; I25.10 Atherosclerotic heart disease of native coronary artery without angina pectoris; M05.9 Rheumatoid arthritis with rheumatoid factor, unspecified; Z86.16 Personal history of COVID-19
CPT/HCPCS: 30117; 88331; 96368; J0330; J0360; J1100; J2370; J2405; J2704; J3010; J3490; J7030

== ENCOUNTER 2022-05-17 06:00 | Outpatient (RCR) | payer MEDICARE, OTHER, SELFPAY | END 2022-06-01 23:59 | disposition home or self-care (01) | LOC: SPT 06:00 | PROVIDERS: PCP Family Medicine; Visit Provider Family Medicine | DX: R26.81 Unsteadiness on feet (principal) | CPT/HCPCS: 97110; 97112 ==

== ENCOUNTER → 2022-05-18 08:27 | Outpatient (BNVA) | payer MEDICARE, OTHER, SELFPAY | PROVIDERS: PCP Family Medicine; Visit Provider Otolaryngology | DX: Z48.810 Encounter for surgical aftercare following surgery on the sense organs (principal); J34.89 Other specified disorders of nose and nasal sinuses | CPT/HCPCS: 99024 ==

== ENCOUNTER → 2022-06-19 13:29 | Outpatient (BNVA) | payer MEDICARE, OTHER, SELFPAY | PROVIDERS: PCP Family Medicine; Visit Provider Otolaryngology | DX: J34.89 Other specified disorders of nose and nasal sinuses (principal); Z48.810 Encounter for surgical aftercare following surgery on the sense organs | CPT/HCPCS: 99024 ==

== ENCOUNTER → 2022-07-23 12:48 | Outpatient (BNVA) | payer MEDICARE, OTHER, SELFPAY | PROVIDERS: PCP Family Medicine; Visit Provider Internal Medicine Rheumatology | DX: M05.79 Rheumatoid arthritis with rheumatoid factor of multiple sites without organ or systems involvement (principal); Z71.89 Other specified counseling; Z79.899 Other long term (current) drug therapy; M72.2 Plantar fascial fibromatosis; Z86.16 Personal history of COVID-19 | CPT/HCPCS: 99214 ==

== ENCOUNTER 2022-08-02 08:04 | Outpatient (CLI) | payer MEDICARE, OTHER, SELFPAY ==
--- NOTE | 2022-08-02 08:15 | MM_ITS ---
WS: [id number] VIEWS: MLO and CC views both breasts. 3D digital tomosynthesis is also included in this exam. Comparison made with prior exam of 12/11/2006, 12/27/2008, 04/23/2017,. Findings: There was no sign of mass, architectural distortion or suspicious calcification in either breast. s cattered fibroglandular densities MM/[place] [id number] Impression: BI-RADS: 2-Benign FOLLOW-UP: 1 Year Follow-up This mammogram was also analyzed by the Computer Aided Detection System R2 Imag e Lap Hand Tool.
== END 2022-08-02 08:05 | disposition home or self-care (01) ==
LOC: RAD 08:06
PROVIDERS: PCP Family Medicine; Visit Provider Family Medicine
DX: Z12.31 Encounter for screening mammogram for malignant neoplasm of breast (principal)
CPT/HCPCS: 77063; 77067

== ENCOUNTER → 2022-11-01 09:47 | Outpatient (BNVA) | payer MEDICARE, SELFPAY | PROVIDERS: PCP Family Medicine; Visit Provider Urology | DX: N30.20 Other chronic cystitis without hematuria (principal) | CPT/HCPCS: 51798; 81003; 99213 ==

== ENCOUNTER → 2022-11-07 13:44 | Outpatient (BNVA) | payer MEDICARE, SELFPAY | PROVIDERS: PCP Family Medicine; Visit Provider Internal Medicine Rheumatology | DX: M05.79 Rheumatoid arthritis with rheumatoid factor of multiple sites without organ or systems involvement (principal); M81.0 Age-related osteoporosis without current pathological fracture; Z79.899 Other long term (current) drug therapy; Z71.89 Other specified counseling; M72.2 Plantar fascial fibromatosis | CPT/HCPCS: 36415; 80076; 82306; 82565; 82607; 84439; 84443; 85025; 86140; 99214 ==

== ENCOUNTER → 2023-01-24 13:34 | Outpatient (BNVA) | payer MEDICARE, SELFPAY | PROVIDERS: PCP Family Medicine; Visit Provider Internal Medicine Rheumatology | DX: M05.79 Rheumatoid arthritis with rheumatoid factor of multiple sites without organ or systems involvement (principal); Z71.89 Other specified counseling; M72.2 Plantar fascial fibromatosis; Z79.899 Other long term (current) drug therapy; M81.0 Age-related osteoporosis without current pathological fracture; R60.9 Edema, unspecified | CPT/HCPCS: 36415; 80076; 81001; 82565; 82570; 83880; 84156; 85025; 85651; 86140; 87077; 87086; 87186; 99214 ==

== ENCOUNTER 2023-02-12 22:47 | Emergency (ER) | payer MEDICARE, SELFPAY ==
[2023-02-12 22:51] VITALS: BP 164/85; PULSE 84; RESP 16; TEMP 37.2; O2SAT 95; BMI 24.2
--- NOTE | 2023-02-12 22:54 | ED_ITS ---
HPI - Weakness General: Chief complaint: Weakness Stated complaint: flu-like symptoms, weakness Time Seen by Provider: 02/12/23 22:53 History of Present Illness: 77-year-old lady presenting with generalized illness. Onset of symptoms was subacute and notes generalized symptoms without focality. She reports body aches and generalized malaise. Intensity symptoms is moderate to severe. Course has persisted. No other specific changes in health, exacerbating, or alleviating factors identified. Review of Systems General: Reports: 10 or more systems reviewed and unremarkable except in HPI and below PFSH ED PFSH: Medical History Chronic cystitis COVID-19 pt was off quarantine mid Sep 2020 Dependent edema High risk medication use History of cystocele Immunization counseling Nasal ulcer Osteoporosis Plantar fasciitis of left foot Red eye Rheumatoid arthritis with rheumatoid factor Surgical History History of nasal surgery HX lesion of nasal septum removal History of vaginal surgery History of varicose vein ligation and stripping Family History Mother , at age 96-heart disease Stroke Father , in his 70's No problems noted. Other Arthritis CAD (coronary artery disease) Hypertension Denies family history of Diabetes Cancer Social History Smoking and tobacco status: never smoked Alcohol intake: never Substance/Drug Use: never Marital status: Current occupational status: retired Current gender identity: Male Physical Exam Const: COMMON NORMALS: patient oriented x3 and alert GENERAL APPEARANCE: cooperative and well developed HENMT: COMMON NORMALS: normocephalic and atraumatic HEAD & SCALP: nor mocephalic and atraumatic THROAT: posterior oropharynx normal Eye: COMMON NORMALS: conjunctivae normal CONJUNCTIVA: Yes conjunctivae normal SCLERA: sclerae normal Neck/C-Spine: COMMON NORMALS: supple GENERAL: Yes trachea midline Resp: COMMON NORMALS: clear to auscultation bilaterally EFFORT & INSPECTION: Yes able to speak in complete sentences AUSCULTATION: clear to auscultation bilaterally Cardio: COMMON NORMALS: regular rate and regular rhythm RATE: regular rate RHYTHM: regular rhythm GI: COMMON NORMALS: Soft to palpation PALPATION: Yes Soft to palpation and No Tenderness to palpation present (GI) Extremity: NARRATIVE EXTREMITY EXAM: Mild deformity noted to left ankle GENERAL: Yes normal exam except as noted and No edema Neuro: COMMON NORMALS: patient oriented x3, CN's II-XII intact bilaterally, moves all extremities, no focal motor deficits and no sensory deficits noted SENSORIUM/ORIENTATION: Yes alert and No Orientation impaired Psych: COMMON NORMALS: mental status grossly normal and Normal thought process present THOUGHT PROCESS: Normal thought process present Course Vital Signs: Vital signs: Vital Signs Temperature 99.0 F 02/12/23 22:51 Pulse Rate 81 02/13/23 01:00 Respiratory Rate 16 02/13/23 01:00 Blood Pressure 143/91 02/13/23 01:00 Pulse Oximetry 95 02/13/23 01:00 Oxygen Delivery Me thod Room Air 02/12/23 22:51 MDM - Weakness Medical Decision Making 77-year-old lady presenting with on the generalized illness. Somewhat ill- appearing however nontoxic. No focal neurologic deficits. EKG demonstrates sinus rhythm with left axis deviation, no STEMI. Labs with no leukocytosis, normal hemoglobin and platelet count. No significant metabolic derangement to explain symptoms. Negative range 2-hour delta troponin. Possible UTI. Viral panel is positive for rhino/enterovirus. X-rays negative for fracture, no lobar consolidation or pneumothorax. Patient treated with antibiotic for UTI, IV fluids, Toradol. On reassessment she is somewhat improved. Most likely etiology of symptoms is UTI and acute viral syndrome The results of ED evaluation were discussed with the patient including prescriptions and/or symptomatic cares (if applicable) including appropriate and responsible use, followup plan, and return precautions. The patient verbalized understanding and felt safe for discharge. Medical Records I reviewed the patient's medical records. Lab Data I reviewed the patient's lab results. 02/12/23 22:58 02/12/23 22:58 Radiology Impressions Ankle X-Ray 02/12/23 23:12 IMPRESSION: No acute abnormality demonstrated. Chest X-Ray 02/12/23 23:12 IMPRESSION: No acute abnormality demonstrated. Laboratory Results WBC 7.3 10^3/uL (4.0-10.0) 02/12/23 22:58 RBC 3.76 10^6/uL (4.1-5.3) L 02/12/23 22:58 Hgb 12.8 g/dL (11.5-15.3) 02/12/23 22:58 Hct 38.3 % (37.0-47.0) 02/12/23 22:58 MCV 101.9 fl (81-99) H 02/12/23 22:58 MCH 34.0 pg (28.0-34.0) 02/12/23 22:58 MCHC 33.4 g/dL (30.0-36.0) 02/12/23 22:58 RDW 14.8 % (12.1-15.1) 02/12/23 22:58 Plt Count 144 10^3/cmm (130-400) 02/12/23 22:58 MPV 9.8 fL (7.4-10.4) 02/12/23 22:58 Neut % (Auto) 69.4 % 02/12/23 22:58 Lymph % (Auto) 17.0 % 02/12/23 22:58 [place] % (Auto) 11.4 % 02/12/23 22:58 Eos % (Auto) 1.1 % 02/12/23 22:58 Baso % (Auto) 0.4 % 02/12/23 22:58 Neut # (Auto) 5.06 10^3/uL (1.8-7.7) 02/12/23 22:58 Lymph # (Auto) 1.2 10^3/uL (0.8-4.8) 02/12/23 22:58 [place] # (Auto) 0.8 10^3/uL (0.2-0.9) 02/12/23 22:58 Eos # (Auto) 0.1 10^3/uL (0.0-0.8) 02/12/23 22:58 Baso # (Auto) 0.0 10^3/uL (0.0-0.1) 02/12/23 22:58 Nucleated RBC % (auto) 0 % 02/12/23 22:58 Nucleated RBCs # 0.0 /100WBC 02/12/23 22:58 ESR 12 mm/hr (0-15) 02/12/23 22:58 Sodium 138 mmol/L (136-145) 02/12/23 22:58 Potassium 4.0 mmol/L (3.5-5.1) 02/12/23 22:58 Chloride 105 mmol/L (98-107) 02/12/23 22:58 Carbon Dioxide 24 mmol/L (22-29) 02/12/23 22:58 Anion Gap 13.0 (5-19) 02/12/23 22:58 BUN 8 mg/dL (8-23) 02/12/23 22:58 Creatinine 0.7 mg/dL (0.5-0.9) 02/12/23 22:58 GFR Calculation Not Reportable 02/12/23 22:58 Glucose 96 mg/dL (65-115) 02/12/23 22:58 Calculated Osmolality 284 mOsm/kg (285-295) L 02/12/23 22:58 Calcium 8.4 mg/dL (8.5-10.5) L 02/12/23 22:58 Total Bilirubin 0.4 mg/dL (0.15-1.2) 02/12/23 22:58 AST 24 U/L (0-32) 02/12/23 22:58 ALT 20 U/L (0-33) 02/12/23 22:58 Alkaline Phosphatase 77 U/L (35-105) 02/12/23 22:58 Troponin T Baseline 7 ng/L (0-10) 02/12/23 22:58 Troponin T 120 Minute 6.59 ng/L (0-10) 02/13/23 00:43 Delta Troponin T -0.41 ABS# (0-10) L 02/13/23 00:43 C-Reactive Protein 4.2 mg/L (0.0-4.9) 02/12/23 22:58 Total Protein 6.2 g/dL (6.6-8.7) L 02/12/23 22:58 Albumin 3.5 g/dL (3.5-5.2) 02/12/23 22:58 Globulin 2.7 g/dL (1.3-4.6) 02/12/23 22:58 Procalcitonin 0.06 ng/mL (0-0.5) 02/12/23 22:58 TSH 2.39 uIU/mL (0.27-4.20) 02/12/23 22:58 Urine Color Light yellow (Yellow) 02/12/23 23:46 Urine Appearance Clear (CLEAR) 02/12/23 23:46 Urine pH 8 (5-7) H 02/12/23 23:46 Ur Specific [place] 1.015 (1.005-1.030) 02/12/23 23:46 Urine Protein Neg (Negative) 02/12/23 23:46 Urine Glucose (UA) Norm (Normal) 02/12/23 23:46 Urine Ketones Negative (Negative) 02/12/23 23:46 Urine Blood 2+ (Negative) H 02/12/23 23:46 Urine Nitrate Positive (Negative) H 02/12/23 23:46 Urine Bilirubin Neg (Negative) 02/12/23 23:46 Urine Urobilinogen Norm mg/dL (Negative) 02/12/23 23:46 Ur Leukocyte Esterase Trace (Negative) H 02/12/23 23:46 Urine RBC 0-4 /hpf (0-2) H 02/12/23 23:46 Urine WBC 5-10 /hpf (0-5) H 02/12/23 23:46 Ur Squamous Epith Cells 0-4 /hpf (0-5) H 02/12/23 23:46 Amorphous Sediment Not Reportable 02/12/23 23:46 Urine Bacteria 3+ /hpf (NONE) H 02/12/23 23:46 Nasal Influ A H1 2008 PCR Not detected (NOT DETECT) 02/12/23 23:37 Adenovirus (PCR) Not detected (NOT DETECT) 02/12/23 23:37 C. pneumoniae DNA (PCR) Not detected (NOT DETECT) 02/12/23 23:37 Coronavirus 229E (PCR) Not detected (NOT DETECT) 02/12/23 23:37 Human Metapneumovir PCR Not detected (NOT DETECT) 02/12/23 23:37 Influenza A (H1) PCR Not detected (NOT DETECT) 02/12/23 23:37 Influenza A (H3) PCR Not detected (NOT DETECT) 02/12/23 23:37 Influenza Type A (PCR) Not detected (NOT DETECT) 02/12/23 23:37 Influenza Type B (PCR) Not detected (NOT DETECT) 02/12/23 23:37 M. pneumoniae (PCR) Not detected (NOT DETECT) 02/12/23 23:37 Parainfluenza 1 (PCR) Not detected (NOT DETECT) 02/12/23 23:37 Parainfluenza 2 (PCR) Not detected (NOT DETECT) 02/12/23 23:37 Parainfluenza 3 (PCR) Not detected (NOT DETECT) 02/12/23 23:37 Parainfluenza 4 (PCR) Not detected (NOT DETECT) 02/12/23 23:37 RSV Type A (PCR) Not detected (NOT DETECT) 02/12/23 23:37 RSV Type B (PCR) Not detected (NOT DETECT) 02/12/23 23:37 Entero/Rhino (PCR) Detected (NOT DETECT) A 02/12/23 23:37 SARS-CoV-2 (PCR) Not detected (NOT DETECT) 02/12/23 23:37 Discharge Plan Discharge Patient Disposition: Home Clinical Impression: Viral infection, Acute UTI Condition: Stable Prescriptions: No Action metronidazole 0.75 % gel 1 applic topical BID Qty: 45 6RF Rx Instructions: Apply thin amount to entire face twice daily. tacrolimus 0.1 % ointment 1 applic topical BID Qty: 30 0RF Rx Instructions: Apply to red scaled areas. ascorbic acid (vitamin C) 125 mg tablet,chewable 125 mg PO DAILY VIACTIVE 1 tab PO DAILY methenamine hippurate 1 gram tablet 1 g PO BID Qty: 60 12RF Rx Instructions: Take 1000 mg of vitamin C with each dose of methenamine tramadol 50 mg tablet 50 mg PO TID PRN (Reason: pain) Qty: 60 1RF folic acid 1 mg tablet 1 mg PO DAILY Qty: 90 3RF prednisone 10 mg tablet See Rx Instructions PO .COMPLEX PRN (Reason: joint pain) Qty: 30 3RF Rx Instructions: take 1 tab daily for 4-5 days prn flare PO PRN; alendronate [Fosamax] 70 mg tablet 70 mg PO .one tab once a week Qty: 12 1RF Rx Instructions: on tuesdays methotrexate sodium 2.5 mg tablet See Rx Instructions PO .weekly Qty: 40 3RF Rx Instructions: take 4 tabs in am and 4 tabs in pm on same day once a week-- on fridays Discharge Orders: Discharge ED (Routine); Ordered 02/13/23 Ordered By: Reagan Paula Referrals: Galilea De La Rosa MD [Primary Care Provider] - Discharge Diet: Usual diet Discharge Activity: Increase activity as tolerated Patient Instructions: Urinary Tract Infection in Women (ED), Viral Syndrome (ED) Activity Restrictions/Additional Instructions: Thank you for visiting the emergency department. You were seen and evaluated for generalized illness. The most likely cause of your symptoms is multifacto rial including viral infection with rhinovirus and urinary tract infection. The urinary tract infection will be treated with antibiotics. Please ensure that you are staying hydrated. You may use [id number] medications such as acetaminophen and ibuprofen for pain however please do not exceed the daily recommended dosage as listed on the packaging and please keep in mind that many namebrand medications contain the same active ingredients. Please avoid these medications if previously instructed to do so by another physician due to other underlying medical condition. Please follow-up with your primary care provider. I will message case management for follow-up with podiatry given persistent ankle pain and swelling. Return to the emergency department for anything that you are concerned about and feel needs emergency room evaluation. Coding Level of Care Code ED Lab Aide for Tim Rader
[2023-02-12 23:00] VITALS: BP 167/96; PULSE 83; RESP 16; O2SAT 96
--- NOTE | 2023-02-12 23:12 | XRR_ITS ---
PROCEDURE INFORMATION: Exam: XR Left Ankle Exam date and time: 02/12/2023 11:31 PM Age: 77 years old Clinical indication: Edema; Location not specified; Additional info: L ankle pain, atraumatic TECHNIQUE: Imaging protocol: Radiologic exam of the left ankle. Views: 3 or more views. COMPARISON: No relevant prior studies available. FINDINGS: Bones/joints: Diffuse osteopenia noted. No acute fracture or other acute osseous abnormality. No significant joint narrowing. No joint dislocation. No joint effusion noted. Soft tissues: Soft tissue edema noted. XR/XR ankle LT min 3V* [id number] IMPRESSION: No acute abnormality demonstrated.
--- NOTE | 2023-02-12 23:12 | XRR_ITS ---
PROCEDURE INFORMATION: Exam: XR Chest Exam date and time: 02/12/2023 11:33 PM Age: 77 years old Clinical indication: Shortness of breath; Additional info: SOB, weakness TECHNIQUE: Imaging protocol: Radiologic exam of the chest. Views: 1 view. COMPARISON: CT cervical spin wo con* [id number] 02/22/2022 7:09 AM FINDINGS: Lungs: No consolidative pulmonary infiltrates are noted. Pleural spaces: No pleural effusion. No pneumothorax. Heart/Mediastinum: No cardiomegaly. Bones/joints: Mild scoliosis and degenerative change of the thoracic spine. XR/XR chest 1V portable [id number] IMPRESSION: No acute abnormality demonstrated.
--- NOTE | 2023-02-12 23:13 | ECG_ITS ---
[facility] Test Date: 2023-02-12 Pat Name: Carola Disla Department: Room: Gender: Female It Service Manager: : 1945 Requested By: Reagan Paula Order Number: [id number] Crowell MD: Aundrea Pride M.D. Measurements Intervals [place] Rate: 86 P: 54 MI: 143 QRS: -9 QRSD: 88 T: 66 QT: 369 QTc: 443 Interpretive Statements SINUS RHYTHM POSSIBLE LEFT ATRIAL ENLARGEMENT [-0.1mV P-WAVE IN V1/V2] LOW QRS VOLTAGE IN PRECORDIAL LEADS [QRS DEFLECTION < 1.0 mV IN CHEST LEADS] PATTERN CONSISTENT WITH PULMONARY DISEASE NONSPECIFIC T-WAVE ABNORMALITY No previous ECG available for comparison Electronically Signed On 02-13-2023 8:13:06 CDT by Aundrea Pride M.D. [id number]
[2023-02-12 23:15] VITALS: BP 163/89; PULSE 83; RESP 17; O2SAT 96
[2023-02-12 23:21] LABS: Erythrocyte Sedimentation Rate 12 mm/hr (0-15)
[2023-02-12 23:30] VITALS: BP 160/102; PULSE 81; RESP 16; O2SAT 98
[2023-02-12 23:34] LABS: Troponin(5th) Baseline 7 ng/L (0-10)
[2023-02-12 23:36] LABS: Basophils % 0.4 %; Eosinophils # 0.1 10^3/uL (0.0-0.8); Eosinophils % 1.1 %; Hematocrit 38.3 % (37.0-47.0); Hemoglobin 12.8 g/dL (11.5-15.3); Lymphocytes # 1.2 10^3/uL (0.8-4.8); Mean Corpuscular HGB Conc 33.4 g/dL (30.0-36.0); Mean Corpuscular Volume 101.9 fl (81-99); Mean Platelet Volume 9.8 fL (7.4-10.4); Monocytes # 0.8 10^3/uL (0.2-0.9); Monocytes % 11.4 %; Neutrophils # 5.06 10^3/uL (1.8-7.7); Neutrophils % 69.4 %; Nucleated Red Blood Cells % 0 %; Platelet Count 144 10^3/cmm (130-400); Red Blood Count 3.76 10^6/uL (4.1-5.3); Red Cell Distribution Width 14.8 % (12.1-15.1); White Blood Count 7.3 10^3/uL (4.0-10.0)
[2023-02-12 23:42] LABS: Procalcitonin 0.06 ng/mL (0-0.5); Thyroid Stimulating Hormone 2.39 uIU/mL (0.27-4.20)
[2023-02-12 23:53] LABS: Alanine Aminotransferase 20 U/L (0-33); Albumin Level 3.5 g/dL (3.5-5.2); Alkaline Phosphatase 77 U/L (35-105); Aspartate Amino Transferase 24 U/L (0-32); Blood Urea Nitrogen 8 mg/dL (8-23); C Reactive Protein 4.2 mg/L (0.0-4.9); Calcium 8.4 mg/dL (8.5-10.5); Carbon Dioxide 24 mmol/L (22-29); Chloride 105 mmol/L (98-107); Globulin 2.7 g/dL (1.3-4.6); Glucose 96 mg/dL (65-115); Osmolality Calculated 284 mOsm/kg (285-295); Sodium 138 mmol/L (136-145); Total Bilirubin 0.4 mg/dL (0.15-1.2); Total Protein 6.2 g/dL (6.6-8.7)
[2023-02-13] MEDS: sodium chloride 0.9% 1,000 ML 999 ML IV
[2023-02-13] MEDS: ketorolac 30 mg/mL INJ 15 MG IVP
[2023-02-13 00:15] LABS: Glucose Urine UA Norm (Normal); Protein Urine Neg (Negative); Specific Gravity, Urine 1.015 (1.005-1.030); Urine Appearance Clear (CLEAR); Urine Color Light yellow (Yellow); pH Urine 8 (5-7)
[2023-02-13 00:16] LABS: Add Urine Microscopic? YES; Bacteria Urine 3+ /hpf; Bilirubin Urine Neg (Negative); Blood Urine 2+ (Negative); Ketones Urine Negative (Negative); Leukocyte Esterase Urine Trace (Negative); Nitrate Urine Positive (Negative); RBC Urine 0-4 /hpf (0-2); Squamous Epithelial Cell Urine 0-4 /hpf (0-5); Urobilinogen Urine Norm (Negative)
[2023-02-13 00:17] LABS: Add Urine Culture? Yes
[2023-02-13 01:00] VITALS: BP 143/91; PULSE 81; RESP 16; O2SAT 95
[2023-02-13] MEDS: cefTRIAXone 1,000 MG in sodium chloride 0.9% (plus) 50 ML 100 MG IV (01:14)
[2023-02-13 01:23] LABS: Adenovirus Not Detected (NOT DETECT); Chlamydia Pneumoniae Not Detected (NOT DETECT); Coronavirus 229E,HKU1,NL63,OC4 Not Detected (NOT DETECT); Human Metapneumovirus Not Detected (NOT DETECT); Human Rhinovirus/Enterovirus Detected (NOT DETECT); Influenza A Not Detected (NOT DETECT); Influenza A H1 Not Detected (NOT DETECT); Influenza A H1-2009 Not Detected (NOT DETECT); Influenza A H3 Not Detected (NOT DETECT); Influenza B Not Detected (NOT DETECT); Mycoplasma Pneumoniae Not Detected (NOT DETECT); Parainfluenza Virus Type 1 Not Detected (NOT DETECT); Parainfluenza Virus Type 2 Not Detected (NOT DETECT); Parainfluenza Virus Type 3 Not Detected (NOT DETECT); Parainfluenza Virus Type 4 Not Detected (NOT DETECT); Respiratory Syncytial Virus A Not Detected (NOT DETECT); Respiratory Syncytial Virus B Not Detected (NOT DETECT); SARS-COV-2 Not Detected (NOT DETECT)
--- NOTE | 2023-02-13 01:23 | ECG_ITS ---
[facility] Test Date: 2023-02-13 Pat Name: Carola Disla Department: Room: Gender: Female Digital Content Manager: : 1945 Requested By: Reagan Paula Order Number: [id number] Socrates MD: Aundrea Pride M.D. Measurements Intervals [place] Rate: 80 P: 64 DC: 140 QRS: 7 QRSD: 90 T: 71 QT: 387 QTc: 447 Interpretive Statements SINUS RHYTHM NONSPECIFIC T-WAVE ABNORMALITY Compared to ECG 02/12/2023 22:59:32 No significant changes Electronically Signed On 02-13-2023 8:19:36 CDT by Aundrea Pride M.D. [id number]
[2023-02-13 01:28] LABS: Troponin 5 2HR 6.59 ng/L (0-10)
[2023-02-13 01:42] LABS: Troponin 5 2HR Delta -0.41 ABS# (0-10)
== END 2023-02-13 01:58 | disposition home or self-care (01) ==
PROVIDERS: Emergency Provider Emergency Medicine; PCP Family Medicine
DX: B34.9 Viral infection, unspecified (principal); N39.0 Urinary tract infection, site not specified
CPT/HCPCS: 71045; 73610; 80053; 81001; 81003; 84145; 84443; 84484; 85025; 85651; 86140; 87040; 87077; 87086; 87186; 87486; 87581; 87633; 93005; 96365; 96375; 99285; J0696; J1885; J7030

== ENCOUNTER 2023-02-28 11:48 | Outpatient (CLI) | payer MEDICARE, SELFPAY ==
[2023-02-28 14:28] LABS: Bilirubin Urine Neg (Negative); Blood Urine 2+ (Negative); Glucose Urine UA Norm (Normal); Ketones Urine Negative (Negative); Leukocyte Esterase Urine 2+ (Negative); Nitrate Urine Positive (Negative); Protein Urine Neg (Negative); Specific Gravity, Urine 1.015 (1.005-1.030); Urine Appearance Cloudy (CLEAR); Urine Color Yellow (Yellow); Urobilinogen Urine Norm (Negative); pH Urine 6.5 (5-7)
[2023-02-28 14:34] LABS: Add Urine Culture? Yes; Bacteria Urine 2+ /hpf; Mucus Urine TRACE /hpf; RBC Urine 0-4 /hpf (0-2); Squamous Epithelial Cell Urine 0-4 /hpf (0-5); WBC Urine 15-25 /hpf (0-5)
== END 2023-02-28 11:49 | disposition home or self-care (01) ==
PROVIDERS: PCP Family Medicine; Visit Provider Internal Medicine Rheumatology
DX: N39.0 Urinary tract infection, site not specified (principal)
CPT/HCPCS: 81001; 87077; 87086; 87186

== ENCOUNTER → 2023-04-25 13:51 | Outpatient (BNVA) | payer MEDICARE, SELFPAY | PROVIDERS: PCP Family Medicine; Visit Provider Internal Medicine Rheumatology | DX: Z79.899 Other long term (current) drug therapy; M05.79 Rheumatoid arthritis with rheumatoid factor of multiple sites without organ or systems involvement; Z71.89 Other specified counseling; M81.0 Age-related osteoporosis without current pathological fracture; M79.89 Other specified soft tissue disorders; Z86.16 Personal history of COVID-19 | CPT/HCPCS: 36415; 80076; 82565; 85025; 86140; 99214 ==

== ENCOUNTER 2023-05-02 09:53 | Outpatient (CLI) | payer MEDICARE, SELFPAY ==
--- NOTE | 2023-05-02 10:00 | USCV_ITS ---
Carola Disla Age: 77 Gender: F : 1945 Exam Date: 05/02/2023 10:11 Ordering Phys: Donell Wasserman MD Technologist: Jose Santiago [place] [facility] [place]: lt leg pain and swelling PROCEDURES: Venous duplex imaging was performed in only the left lower extremity. The following venous structures were evaluated: common femoral vein, profunda vein, proximal portion of the greater saphenous vein, superficial femoral vein, and the popliteal vein. In addition, the posterior tibial and peroneal trunk were evaluated. FINDINGS: Normal 2-D Doppler and augmentation and compressibility throughout the lower extremity venous structures. Additional imaging through the proximal calf veins also reveals no thrombus. Limited evaluation of the greater saphenous vein is patent with no thrombus. CONCLUSIONS No DVT left lower extremity. Dr. Deyanira Shelton DO (Electronically Signed) Final Date: 02 May 2023 12:11 S
== END 2023-05-02 09:54 | disposition home or self-care (01) ==
PROVIDERS: PCP Family Medicine; Visit Provider Internal Medicine Rheumatology
DX: Z13.6 Encounter for screening for cardiovascular disorders (principal); M79.605 Pain in left leg; M79.89 Other specified soft tissue disorders
CPT/HCPCS: 93971

== ENCOUNTER → 2023-07-25 14:14 | Outpatient (BNVA) | payer MEDICARE, SELFPAY | PROVIDERS: PCP Family Medicine; Visit Provider Internal Medicine Rheumatology | DX: Z79.899 Other long term (current) drug therapy (principal); M05.79 Rheumatoid arthritis with rheumatoid factor of multiple sites without organ or systems involvement; Z71.89 Other specified counseling; M81.0 Age-related osteoporosis without current pathological fracture; M79.89 Other specified soft tissue disorders | CPT/HCPCS: 36415; 80053; 85025; 99214 ==

== ENCOUNTER 2023-10-18 09:02 | Outpatient (CLI) | payer MEDICARE, SELFPAY ==
--- NOTE | 2023-10-18 09:07 | US_ITS ---
WS: [id number] RENAL ULTRASOUND HISTORY: UTI/HX OF CYSTOCELE COMPARISON: None available. TECHNIQUE: 2-D and color Doppler imaging of the kidney submitted. Right kidney: 9.5 cm x 5.1 cm x 4.1 cm. Cortex: 0.9 cm Normal echogenicity with no hydronephrosis or mass. Left kidney: 10.8 cm x 4.6 cm x 4.7 cm. Cortex: 0.9 cm Normal echogenicity with no hydronephrosis or mass. Aorta: Normal. Urinary Bladder: Nondistended. IMPRESSION: Normal renal ultrasound.
== END 2023-10-18 09:03 | disposition home or self-care (01) ==
LOC: RAD 09:02
PROVIDERS: PCP Family Medicine; Visit Provider Urology
DX: N39.0 Urinary tract infection, site not specified (principal); Z87.448 Personal history of other diseases of urinary system
CPT/HCPCS: 76770

== ENCOUNTER 2023-11-01 12:52 | Outpatient (CLI) | payer MEDICARE, SELFPAY ==
--- NOTE | 2023-11-01 12:59 | MM_ITS ---
WS: [id number] Bilateral screening 3D tomosynthesis digital mammogram, 11/01/2023 Clinical Data: SCREENING Comparison: 08/02/2022, 04/23/2017, 12/27/2008, 12/11/2006. Findings: The breast parenchymal pattern shows fat replacement. No spiculated masses or clustered calcification s are seen. There are no secondary signs of carcinoma. Impression: 1. Negative bilateral mammogram unchanged. 2. Recommend annual screening mammograms. MM/[place] [id number] BIRADS: 1-Negative FOLLOW UP: 1 Year Follow-up The CAD rechecker was used.
--- NOTE | 2023-11-01 12:59 | XR_ITS ---
WS: [id number] SCREENING DEXA SCAN [employer] CLINICAL INFORMATION: POSTMENOPAUSAL COMPARISON: 2019 FINDINGS: The L1-L4 bone mineral density measures 0.959 g/cm2. This corresponds to a T score score of -1.8 and Z score of -0.2. Left femoral neck bone mineral density measures 0.674 g/cm2. This corresponds to a T score of -2.6 an d Z score of -0.8. Right femoral neck bone mineral density measures 0.724 g/cm2. This corresponds to a T score -2.3of an d Z score of -0.4. Mean femoral neck bone mineral density measures 0.699 g/cm2. This corresponds to a T score of -2.4 an d Z score of -0.6. IMPRESSION: Osteopenia lumbar spine. Osteopenia femoral necks at the upper end of the range approaching osteoporo sis. Patient's FRAX calculated 10 year probability for major osteoporotic fracture is 25.8% and osteoporot ic hip fracture is 10.0%. Bone mineral density in the lumbar spine has increased 8.2% Bone mineral density in the femoral necks decreased -10.2%
== END 2023-11-01 12:53 | disposition home or self-care (01) ==
LOC: RAD 12:52
PROVIDERS: PCP Family Medicine; Visit Provider Family Medicine
DX: Z78.0 Asymptomatic menopausal state (principal); Z12.31 Encounter for screening mammogram for malignant neoplasm of breast
CPT/HCPCS: 77063; 77067; 77080

== ENCOUNTER → 2023-11-14 09:59 | Outpatient (BNVA) | payer MEDICARE, SELFPAY | PROVIDERS: PCP Family Medicine; Visit Provider Internal Medicine Rheumatology | DX: M81.0 Age-related osteoporosis without current pathological fracture (principal); Z79.899 Other long term (current) drug therapy; M05.79 Rheumatoid arthritis with rheumatoid factor of multiple sites without organ or systems involvement; Z71.89 Other specified counseling; M79.89 Other specified soft tissue disorders | CPT/HCPCS: 36415; 80076; 82306; 82310; 82565; 85025; 86140; 99214 ==

== ENCOUNTER → 2023-11-18 13:57 | Outpatient (BNVA) | payer MEDICARE, SELFPAY | PROVIDERS: PCP Family Medicine; Visit Provider Podiatrist Foot & Ankle Surgery | DX: M76.822 Posterior tibial tendinitis, left leg; M76.821 Posterior tibial tendinitis, right leg | CPT/HCPCS: 73630; 99203 ==

== ENCOUNTER 2023-11-20 13:23 | Oncology outpatient (recurring) (ONCR) | payer MEDICARE, SELFPAY ==
[2023-11-20 13:44] VITALS: BP 146/85; PULSE 74; RESP 16; O2SAT 96
[2023-11-20] MEDS: denosumab 60 mg SDV SUBCUT (13:46)
== END 2023-12-15 23:59 | disposition home or self-care (01) ==
LOC: ONCMED 13:25
PROVIDERS: PCP Family Medicine; Visit Provider Internal Medicine Rheumatology
DX: M81.0 Age-related osteoporosis without current pathological fracture (principal)
CPT/HCPCS: 96372; J0897

== ENCOUNTER 2023-12-19 10:37 | Outpatient (CLI) | payer MEDICARE, SELFPAY | END 2023-12-19 10:38 | disposition home or self-care (01) | LOC: SPT 10:37 | PROVIDERS: PCP Family Medicine; Visit Provider Podiatrist Foot & Ankle Surgery | DX: Z46.89 Encounter for fitting and adjustment of other specified devices (principal); M79.671 Pain in right foot; M79.672 Pain in left foot; M76.822 Posterior tibial tendinitis, left leg; M76.821 Posterior tibial tendinitis, right leg | CPT/HCPCS: L3030 ==

== ENCOUNTER → 2023-12-30 09:47 | Outpatient (BNVA) | payer MEDICARE, SELFPAY | PROVIDERS: PCP Family Medicine; Visit Provider Podiatrist Foot & Ankle Surgery | DX: M76.822 Posterior tibial tendinitis, left leg; M76.821 Posterior tibial tendinitis, right leg | CPT/HCPCS: 99213 ==

== ENCOUNTER 2024-01-28 13:12 | Outpatient (CLI) | payer MEDICARE, SELFPAY ==
[2024-01-28 13:51] LABS: Basophils % 0.4 %; Eosinophils # 0.2 10^3/uL (0.0-0.8); Eosinophils % 2.4 %; Hematocrit 37.9 % (36-47); Lymphocytes % 27.2 %; Mean Corpuscular HGB Conc 33.2 g/dL (30-55); Mean Corpuscular Hemoglobin 34.5 pg (27-33); Mean Corpuscular Volume 103.8 fl (85-98); Mean Platelet Volume 9.9 fL (7.4-10.4); Monocytes # 0.9 10^3/uL (0.2-0.9); Monocytes % 11.5 %; Neutrophils # 4.37 10^3/uL (1.8-7.7); Neutrophils % 58.1 %; Nucleated Red Blood Cells % 0 %; Platelet Count 125 10^3/cmm (157-399); Red Blood Count 3.65 10^6/uL (3.85-5.65); White Blood Count 7.51 10^3/uL (3.29-11.43)
[2024-01-28 14:12] LABS: Alanine Aminotransferase 16 U/L (0-33); Albumin Level 3.6 g/dL (3.5-5.2); Alkaline Phosphatase 88 U/L (35-105); Aspartate Amino Transferase 29 U/L (0-32); C Reactive Protein 4.5 mg/L (0.0-4.9); Globulin 3.5 g/dL (1.3-4.6); Total Bilirubin 0.6 mg/dL (0.15-1.2); Total Protein 7.1 g/dL (6.6-8.7)
== END 2024-01-28 13:13 | disposition home or self-care (01) ==
PROVIDERS: PCP Family Medicine; Visit Provider Internal Medicine Rheumatology
DX: Z79.899 Other long term (current) drug therapy (principal); M05.79 Rheumatoid arthritis with rheumatoid factor of multiple sites without organ or systems involvement
CPT/HCPCS: 36415; 80076; 82565; 85025; 86140

== ENCOUNTER → 2024-04-01 09:11 | Outpatient (BNVA) | payer MEDICARE, SELFPAY | PROVIDERS: PCP Family Medicine; Visit Provider Nurse Practitioner Family | DX: L82.0 Inflamed seborrheic keratosis (principal); D22.61 Melanocytic nevi of right upper limb, including shoulder; L81.4 Other melanin hyperpigmentation; L71.8 Other rosacea | CPT/HCPCS: 17110; 99214 ==

== ENCOUNTER → 2024-04-14 13:30 | Outpatient (BNVA) | payer MEDICARE, SELFPAY | PROVIDERS: PCP Family Medicine; Visit Provider Internal Medicine Rheumatology | DX: M05.79 Rheumatoid arthritis with rheumatoid factor of multiple sites without organ or systems involvement (principal); M81.0 Age-related osteoporosis without current pathological fracture; M79.89 Other specified soft tissue disorders; Z71.85 Encounter for immunization safety counseling; Z79.899 Other long term (current) drug therapy | CPT/HCPCS: 99214 ==

== ENCOUNTER → 2024-05-04 10:11 | Outpatient (BNVA) | payer MEDICARE, SELFPAY | PROVIDERS: PCP Family Medicine; Visit Provider Podiatrist Foot & Ankle Surgery | DX: M76.822 Posterior tibial tendinitis, left leg; M76.821 Posterior tibial tendinitis, right leg | CPT/HCPCS: 99213 ==

== ENCOUNTER 2024-05-12 08:36 | Outpatient (RCR) | payer MEDICARE, SELFPAY | END 2024-05-16 23:59 | disposition home or self-care (01) | LOC: SPT 08:36 | PROVIDERS: PCP Family Medicine; Visit Provider Podiatrist Foot & Ankle Surgery | DX: M76.822 Posterior tibial tendinitis, left leg (principal); M76.821 Posterior tibial tendinitis, right leg | CPT/HCPCS: 97161 ==

== ENCOUNTER 2024-05-20 10:02 | Outpatient (RCR) | payer MEDICARE, SELFPAY | END 2024-06-05 23:59 | disposition home or self-care (01) | LOC: SPT 10:02 | PROVIDERS: PCP Family Medicine; Visit Provider Podiatrist Foot & Ankle Surgery | DX: M76.822 Posterior tibial tendinitis, left leg (principal); M76.821 Posterior tibial tendinitis, right leg | CPT/HCPCS: 97110; 97530 ==

== ENCOUNTER → 2024-07-02 08:40 | Outpatient (BNVA) | payer MEDICARE, SELFPAY | PROVIDERS: PCP Family Medicine; Visit Provider Nurse Practitioner Family | DX: D22.61 Melanocytic nevi of right upper limb, including shoulder (principal); L81.4 Other melanin hyperpigmentation; L71.8 Other rosacea; L23.9 Allergic contact dermatitis, unspecified cause | CPT/HCPCS: 99214 ==

== ENCOUNTER 2024-07-30 12:50 | Outpatient (CLI) | payer MEDICARE, SELFPAY ==
--- NOTE | 2024-07-30 12:54 | XR_ITS ---
WS: [id number] KUB, AP views, 07/30/2024 Clinical Data: RECURRENT UTI Comparison: None. Findings: No abnormal intraabdominal masses or calcifications are seen. There is no dilatated small bowel or ev idence of obstruction. There is a large amount of fecal material throughout the colon. The bladder is partly full. There are surgical clips in both inguinal regions. XR/XR KUB [id number] Impression: Large amount of fecal material in the colon.
== END 2024-07-30 12:51 | disposition home or self-care (01) ==
PROVIDERS: PCP Family Medicine; Visit Provider Nurse Practitioner Family
DX: N39.0 Urinary tract infection, site not specified (principal); K59.00 Constipation, unspecified
CPT/HCPCS: 74018

== ENCOUNTER → 2024-08-05 09:13 | Outpatient (BNVA) | payer MEDICARE, SELFPAY | PROVIDERS: PCP Family Medicine; Visit Provider Nurse Practitioner Family | DX: L23.9 Allergic contact dermatitis, unspecified cause (principal); D22.61 Melanocytic nevi of right upper limb, including shoulder; L81.4 Other melanin hyperpigmentation; L71.0 Perioral dermatitis | CPT/HCPCS: 99214 ==

== ENCOUNTER 2024-08-21 09:58 | Oncology outpatient (recurring) (ONCR) | payer MEDICARE, SELFPAY ==
[2024-08-21 10:11] VITALS: BP 127/76; PULSE 67; RESP 18; TEMP 36.6; O2SAT 97
[2024-08-21] MEDS: denosumab 60 mg SDV SUBCUT (10:27)
== END 2024-09-15 23:59 | disposition home or self-care (01) ==
LOC: ONCMED 09:58
PROVIDERS: PCP Family Medicine; Visit Provider Internal Medicine Rheumatology
DX: M81.0 Age-related osteoporosis without current pathological fracture (principal); Z79.899 Other long term (current) drug therapy
CPT/HCPCS: 96372; J0897

== ENCOUNTER → 2025-04-06 09:03 | Outpatient (BNVA) | payer MEDICARE, SELFPAY | PROVIDERS: PCP Family Medicine; Visit Provider Nurse Practitioner Family | DX: L44.8 Other specified papulosquamous disorders (principal); L57.8 Other skin changes due to chronic exposure to nonionizing radiation; L81.4 Other melanin hyperpigmentation; D48.5 Neoplasm of uncertain behavior of skin | CPT/HCPCS: 11102; 99213 ==

== ENCOUNTER → 2025-04-13 12:48 | Outpatient (BNVA) | payer MEDICARE, SELFPAY | PROVIDERS: PCP Family Medicine; Visit Provider Internal Medicine Rheumatology | DX: M05.79 Rheumatoid arthritis with rheumatoid factor of multiple sites without organ or systems involvement (principal); Z71.85 Encounter for immunization safety counseling; Z79.899 Other long term (current) drug therapy; M81.0 Age-related osteoporosis without current pathological fracture; M79.89 Other specified soft tissue disorders | CPT/HCPCS: 36415; 80076; 82306; 82565; 85025; 85651; 86140; 99214 ==

== ENCOUNTER 2025-05-04 11:41 | Oncology outpatient (recurring) (ONCR) | payer MEDICARE, SELFPAY | END 2025-05-16 23:59 | disposition home or self-care (01) | PROVIDERS: PCP Family Medicine; Visit Provider Internal Medicine Rheumatology | DX: Z53.9 Procedure and treatment not carried out, unspecified reason (principal) ==

== ENCOUNTER → 2025-08-25 12:51 | Outpatient (BNVA) | payer MEDICARE, SELFPAY | PROVIDERS: PCP Family Medicine; Visit Provider Internal Medicine Rheumatology | DX: M05.79 Rheumatoid arthritis with rheumatoid factor of multiple sites without organ or systems involvement (principal); Z71.85 Encounter for immunization safety counseling; Z79.899 Other long term (current) drug therapy; M81.0 Age-related osteoporosis without current pathological fracture; M79.89 Other specified soft tissue disorders | CPT/HCPCS: 99214 ==